=== PATIENT | female | born 1990 | race Caucasian/White ===

== ENCOUNTER 2016-10-20 11:55 | Emergency (ER) | payer OTHER | END 2016-10-20 14:44 | disposition home or self-care (01) | LOC: ER1 11:55 | DX: S39.012A Strain of muscle, fascia and tendon of lower back, initial encounter (principal); V43.52XA Car driver injured in collision with other type car in traffic accident, initial encounter; Y93.89 Activity, other specified; Y92.410 Unspecified street and highway as the place of occurrence of the external cause | CPT/HCPCS: 72100; 81001; 84703; 99283 ==

== ENCOUNTER 2016-10-21 20:10 | Emergency (ER) | payer OTHER | END 2016-10-21 22:05 | disposition home or self-care (01) | LOC: ER1 20:10 | DX: S09.90XA Unspecified injury of head, initial encounter (principal); Z79.84 Long term (current) use of oral hypoglycemic drugs; V43.02XA Car driver injured in collision with other type car in nontraffic accident, initial encounter; Y93.89 Activity, other specified; Y92.481 Parking lot as the place of occurrence of the external cause | CPT/HCPCS: 70450; 99284 ==